=== PATIENT | male | born 1955 | race Caucasian/White ===

== ENCOUNTER 2016-11-09 05:37 | Observation (INO) ==
[2016-11-03 11:48] LABS: HEMATOCRIT 42.2 % (42.0-52.0); HEMOGLOBIN 14.5 g/dL (14.0-18.0); MCH 35.1 PG (27-31); MCHC 34.4 g/dL (33-37); MCV 102.2 FL (81-99); MPV 9.6 FL (7.4-10.4); RBC 4.13 XMIL (4.7-6.1)
--- NOTE | 2016-11-03 12:08 | EKG Report ---
Test Performed on : 11/03/2016 11:10:51 AM Test Reason : PAT Blood Pressure : / mmHG Vent. Rate : 058 BPM Atrial Rate : 058 BPM P-R Int : 182 ms QRS Dur : 130 ms QT Int : 448 ms P-R-T Axes : 043 019 037 degrees QTc Int : 439 ms Sinus bradycardia. Nonspecific intraventricular block Abnormal ECG When compared with ECG of 06-JUN-2009 10:41, No significant change was found Confirmed by Freddie Genao DO ([id number]) on 11/07/2016 12:21:06 PM
[2016-11-03 12:12] LABS: AGAP 8; BUN 12 mg/dL (8-22); CALCIUM 8.1 mg/dL (8.8-10.2); CHLORIDE 104 mmol/L (98-107); COSMO 277; POTASSIUM 4.1 mmol/L (3.5-5.1); SODIUM 139 mmol/L (136-145); TCO2 27 mmol/L (25-35)
[2016-11-09] MEDS ORDERED: REGLAN ONE (06:03)
[2016-11-09] MEDS ORDERED: KEFZOL 2 GM/D5W 2 GM/50 ML IVPB ONE (06:03)
[2016-11-09] MEDS ORDERED: PEPCID ONE (06:03)
[2016-11-09] MEDS ORDERED: LR 1,000 ML ONE ×2 (06:03→06:16)
[2016-11-09] MEDS ORDERED: FENTANYL ONE (06:10)
[2016-11-09] MEDS ORDERED: DIPRIVAN 1% ONE (06:11)
[2016-11-09] MEDS ORDERED: VERSED ONE (06:11)
[2016-11-09] MEDS ORDERED: NEO-SYNEPHRINE ONE (06:15)
[2016-11-09] MEDS ORDERED: ROBINUL ONE ×2 (06:15→13:24)
[2016-11-09] MEDS ORDERED: NORCURON ONE ×2 (06:15→09:23)
[2016-11-09] MEDS ORDERED: ZOFRAN ONE (06:15)
[2016-11-09] MEDS ORDERED: QUELICIN (DOSE) ONE (06:15)
[2016-11-09] MEDS ORDERED: OFIRMEV 1000 MG/ISOTONIC SOLN 1,000 MG/100 ML BOTTLE ONE ×2 (06:15→14:12)
[2016-11-09] MEDS ORDERED: STERILE WATER INJ. ONE (06:15)
[2016-11-09] MEDS ORDERED: XYLOCAINE-MPF 2% ONE (06:15)
[2016-11-09] MEDS ORDERED: B & O 16A SUPP ONE (06:16)
[2016-11-09] MEDS ORDERED: NEOSTIGMINE ONE (06:16)
[2016-11-09] MEDS ORDERED: SENSORCAINE-MPF 0.5%/EPI 1:200,000 ONE (06:19)
[2016-11-09 09:12] LABS: URINE MICRO REVIEW NEEDED? NO; URINE SOURCE CATH
[2016-11-09 09:15] LABS: BILIRUBIN URINE NEGATIVE (NEGATIVE); BLOOD URINE NEGATIVE (NEGATIVE); COLOR YELLOW; GLUCOSE URINE NEGATIVE (NEGATIVE); LEUKOCYTES URINE NEGATIVE (NEGATIVE); NITRITE URINE NEGATIVE (NEGATIVE); PROTEIN URINE TRACE mg/dL (NEGATIVE); SP GRAVITY URINE 1.018; TURBIDITY URINE CLEAR (CLEAR); UR EPITHELIAL CELLS <10 /HPF (<10); URINE BACTERIA NEGATIVE /HPF; URINE RBC <10 /HPF (<10); URINE WBC <10 /HPF (<10); UROBILINOGEN URINE NORMAL (NORMAL)
[2016-11-09] MEDS ORDERED: SODIUM CHLORIDE 0.9% 10 ML ONE (09:24)
[2016-11-09] MEDS ORDERED: MORPHINE ONE (10:01)
[2016-11-09] MEDS ORDERED: KEFZOL 1 GM/D5W 1 GM/50 ML IVPB ONE (14:11)
[2016-11-09] MEDS ORDERED: NS 1,000 ML ONE (14:12)
[2016-11-09] MEDS ORDERED: DITROPAN PO PRN (17:12)
[2016-11-09] MEDS ORDERED: PHENERGAN PO PRN (17:12)
[2016-11-09] MEDS ORDERED: PHENERGAN IV PRN (17:12)
[2016-11-09] MEDS ORDERED: MORPHINE IV PRN (17:12)
[2016-11-09] MEDS ORDERED: BENADRYL LIQUID PO PRN (17:12)
[2016-11-09] MEDS ORDERED: LABETALOL IV PRN (17:12)
[2016-11-09] MEDS ORDERED: PHENERGAN PR PRN (17:12)
[2016-11-09] MEDS ORDERED: SODIUM CHLORIDE 0.9% INJ PRN (17:12)
[2016-11-09] MEDS ORDERED: BENADRYL IV PRN (17:12)
[2016-11-09] MEDS: NS 1,000 ML IV SCH ×2 (19:32→22:20)
--- NOTE | 2016-11-09 21:56 | OPERATIVE NOTE ---
PROCEDURE DATE: 11/09/2016 SURGEON: Cristóbal Dumont MD PREOPERATIVE DIAGNOSIS: Adenocarcinoma of the prostate. POSTOPERATIVE DIAGNOSIS: Adenocarcinoma of the prostate. PROCEDURE PERFORMED: 1. Laparoscopic robot-assisted radical retropubic prostatectomy. 2. Modified bilateral pelvic lymph node dissection. 3. Urethral suspension. ANESTHESIA: General endotracheal. FINDINGS: Prostate about 40-50 g, irregular in shape. It was very adhered to the bladder neck area and apex of the rectum. It also appeared to be adhered to the left neurovascular bundle along the whole length and distally in the right neurovascular bundle. INDICATION FOR PROCEDURE: This 61-year-old male has a history of elevated PSA. Prostate ultrasound and biopsies revealed adenocarcinoma, Jovani grade 3 + 4, most from the left side and 3+ 3 from the right side description. DETAILS OF OPERATION: After informed consent was obtained from the patient, him receiving IV antibiotics, he was taken to the main OR, placed in the supine position. General anesthesia via laryngeal mask was achieved. He was then placed in the low lithotomy position and prepped and draped in the usual sterile fashion for abdominal, penile and perineal surgery. The patient was very obese and had a very large pannus. After he was prepped and draped sterilely, an 18-Arabic Whatley catheter was passed through the patient's urethra, prostate, and into the bladder without difficulty. 10 mL sterile water was placed in the Whatley's balloon. Pneumoperitoneum was achieved through a Visiport. Attempts were made to go through the supraumbilical area, through the umbilical area and through the left upper quadrant with a Veress needle without success. His pannus was so thick the needle (even the large needle) would not go through the pannus and entered the abdominal cavity. The Visiport without the built-in knife but with a trocar was used to go through the supraumbilical incision under direct vision and it was seen to go into the abdominal cavity. Pneumoperitoneum was achieved. The robot trocars were placed in the standard position with the #2 arm about 2 handbreadth to the left of the umbilicus, the #1 port was placed about 1 handbreadth lateral to the umbilicus on the right side and the 3rd arm was placed 1 handbreadth away from the #1 arm. This was above the right anterior superior iliac spine. The assistant media buyer port was placed in the left upper quadrant. Again, the obesity cannulas had to be used. After the ports were placed, he was placed in steep Trendelenburg and the table lowered all the way. The robot was docked. The procedure was started by taking down the adhesions from the left side, all the way down into the pelvis and up above the common iliac vessels. After this was taken down, the colon reflected cephalad. The peritoneum was incised as it reflected off the rectum and the seminal vesicles and vas deferens were found. These were bluntly and sharply dissected free. Cautery and clips were used to take the vascular pedicles to the seminal vesicles. Again, both sides were accomplished similarly. Attention was then turned to the anterior abdominal wall where the peritoneum was incised medial to the internal inguinal ring on the right side. This was taken down to the vas deferens as it went into the pelvis and up on the anterior abdominal wall. Left side was accomplished similarly. The medial umbilical ligaments were taken down sharply and the bladder dropped off the anterior abdominal wall. The fibrofatty tissue off the anterior and lateral sides of the prostate were removed sharply. The endopelvic fascia was incised lateral to the prostate and this incision extended up to the puboprostatic ligaments and back to the base of the prostate. The levator ani muscles were pushed off the sides of the prostate as best as possible. The puboprostatic ligaments were taken down sharply. Again, both sides were accomplished similarly. The apex of the prostate appeared very abnormal and a 2-0 V-Loc suture was attempted to be passed under the dorsal vein complex and then back through the tail of the suture and then back under the dorsal vein complex. This allowed some hemostasis. The suture was then passed through the periosteum of the pubis and back under the dorsal vein complex. Because of the very large apex of the prostate, the very end could never be reached at this time. The needle for the dorsal vein complex suture was removed from the body. Attention was then turned to the bladder neck area where the bladder neck was incised and the bladder was sharply dissected off of the base of the prostate. It was noted that the left side of the prostate was markedly enlarged and had the Whatley catheter pushed all the way to the right laterally. The bladder was sharply dissected off of this very large lateral lobe, and the right side was dissected free as well. The bladder was entered over the incision on the right side of the bladder where the Whatley catheter was visualized. The posterior bladder neck was incised and the bladder was dissected off the base of the prostate down to the previously dissected space of the seminal vesicles and ampulla vas deferens. This was entered and the ampulla of the vas and seminal vesicles were delivered. During this dissection, it was noted that the bladder was entered and this defect was sewn with a running suture of 3-0 V-Loc suture. The pedicles were taken down with clips and cautery. This was dissected down to the apex of the prostate, but the apex was very adhered to the rectum. A rectal Sizer was placed to ensure the rectum was not entered. The apex was dissected off of the rectum as best as possible, and then the dorsal vein complex was incised distal to the previously placed suture and dissected down to the urethra. The Whatley catheter was visualized and pulled back. The posterior urethra was incised and the prostate was completely dissected off of the rectum. Again, it was very adhered, and some prostate tissue could have been left. After the prostate was completely freed, the node dissection was performed by removing the tissue medial to the external iliac vein from the node of [place] up to its bifurcation, down to the obturator nerve and then back up to the bifurcation. These were sent to Pathology separately. Right side was accomplished similarly. After the dissection, Surgicel snow was placed in each fossa. The vesicovisceral fascia was connected to the posterior rhabdosphincter with a running suture of 3-0 V-Loc suture. The bladder was anastomosed to the urethra with a running 3-0 V-Loc suture. The Whatley catheter easily passed in the bladder and the bladder distended. There was some leakage noted, so a 19-Arabic Ricky drain was placed through the #4 arm trocar and sutured to the skin. After the drain was placed, pneumoperitoneum was resolved. The robot was undocked and the patient was brought supine. The camera port incision was extended to allow removal of the prostate that was placed in the EndoCatch bag earlier. The incision of the skin had to be lengthened because of the depth of his significant pannus, but the abdominal rectus fascia was eventually found and incised and the prostate removed. The abdominal rectus fascia was reapproximated with interrupted suture of #1 [place]. The skin was reapproximated with clips. He tolerated the procedure well. Estimated blood loss was 50 mL. He was extubated and taken to the recovery room in good condition. cc: Cristóbal Dumont MD
[2016-11-09] MEDS ORDERED: KEFZOL 1 GM/D5W 1 GM/50 ML IVPB IV SCH (22:00)
[2016-11-09] MEDS: OFIRMEV 1000 MG/ISOTONIC SOLN 1,000 MG/100 ML BOTTLE IV SCH (23:43)
[2016-11-10] MEDS: OXY IR PO PRN ×2 (02:09→10:36)
[2016-11-10] MEDS: NS 1,000 ML IV SCH ×3 (02:14→18:10)
[2016-11-10] MEDS: PEPCID PO SCH ×3 (02:15→20:34)
[2016-11-10] MEDS: COLACE PO SCH ×3 (02:15→20:34)
[2016-11-10] MEDS: OFIRMEV 1000 MG/ISOTONIC SOLN 1,000 MG/100 ML BOTTLE IV SCH (04:26)
[2016-11-10 04:59] LABS: CREATININE BODY FLUID 44.6 mg/dL
[2016-11-10 06:05] LABS: HEMATOCRIT 37.9 % (42.0-52.0); HEMOGLOBIN 12.9 g/dL (14.0-18.0); MCH 35.2 PG (27-31); MCV 103.6 FL (81-99); MPV 9.4 FL (7.4-10.4); RBC 3.66 XMIL (4.7-6.1)
[2016-11-10] MEDS: HUMULIN R SUBQ SCH ×3 (06:39→18:10)
[2016-11-10 06:47] LABS: AGAP 7; BUN 20 mg/dL (8-22); CALCIUM 7.5 mg/dL (8.8-10.2); CHLORIDE 102 mmol/L (98-107); COSMO 280; POTASSIUM 5.1 mmol/L (3.5-5.1); SODIUM 137 mmol/L (136-145); TCO2 28 mmol/L (25-35)
[2016-11-10] MEDS: COENZYME Q10 PO SCH (09:30)
[2016-11-10] MEDS: ASPIRIN PO SCH (09:30)
[2016-11-10] MEDS: PRAVACHOL PO SCH (09:31)
[2016-11-10] MEDS: GLUCOPHAGE XR PO SCH (11:04)
[2016-11-10] MEDS: PRINIVIL PO SCH (11:05)
[2016-11-10] MEDS ORDERED: XYLOCAINE-MPF 2% ONE (12:09)
[2016-11-10] MEDS ORDERED: DIPRIVAN 1% ONE (12:10)
[2016-11-10] MEDS ORDERED: QUELICIN (DOSE) ONE (12:27)
[2016-11-10] MEDS ORDERED: KEFZOL 2 GM/D5W 0 GM/0 ML IVPB ONE (12:31)
[2016-11-10] MEDS ORDERED: KEFZOL 2 GM/D5W 2 GM/50 ML IVPB ONE (12:33)
[2016-11-10] MEDS ORDERED: ROBINUL ONE (12:54)
[2016-11-10] MEDS ORDERED: EPHEDRINE ONE (13:02)
--- NOTE | 2016-11-10 19:32 | OPERATIVE NOTE ---
PROCEDURE DATE: 11/10/2016 SURGEON: Cristóbal Dumont MD. PREOPERATIVE DIAGNOSIS: Dislodged Whatley catheter. POSTOPERATIVE DIAGNOSIS: Dislodged Whatley catheter. PROCEDURE PERFORMED: 1. Cystoscopic exam with clot irrigation. 2. Difficult Whatley catheterization. FINDINGS: When the indwelling Whatley catheter was removed, a large amount of clot came out behind it. The cystoscopic exam revealed a urethra greater than 21 [place] without stricture. The Whatley balloon had been pulled back into the membranous urethra and proximal bulbar area and the mucosa was split. This had bleeding areas. With irrigation, this bleeding area almost stopped. The bladder anastomosis was intact and bladder mucosa was coapting to urethral mucosa. Ureteral orifices were normal bilaterally. There was a defect in the trigone consistent with his cystotomy during surgery. There were no papillary lesions. No trabeculations. No diverticula. INDICATION FOR PROCEDURE: This 61-year-old male underwent laparoscopic robot-assisted radical retropubic prostatectomy yesterday. He also underwent bilateral modified pelvic lymph node dissection and urethral suspension. At the time of surgery, the catheter appeared to be in good position. In postop, the patient was noted to have a decrease in the urine output and a lot of clots coming out through and around the catheter. The catheter was irrigated and this irrigant fluid came out of the Ricky drain in the right lower quadrant. This was continued overnight and did not get any better. He presents now to see if the bladder anastomosis is intact and if the catheter was dislodged. DESCRIPTION OF PROCEDURE: After informed consent was obtained from the patient, and him receiving IV antibiotics, he was taken to the main OR cystoscopy room, placed in the supine position. General endotracheal anesthesia was achieved. He was then placed in a low lithotomy position and prepped and draped in the usual sterile fashion for cystoscopic exam. His old Whatley catheter was removed and again a large amount of clot came out with the catheter and immediately behind the catheter. An [facility] flexible cystoscope was passed through the patient's urethra and up to the bladder with findings as noted above. Because there were significant clots, a very good picture could not be seen. The flexible cystoscope was removed and a 21-[place] sheath cystoscope was passed through the patient's urethra, membranous urethra and anastomotic area and into the bladder without difficulty. Clots were irrigated from the bladder and proximal bulbar area. At completion, there were no clots in the bladder. However, there was a diffuse ooze from the urethral mucosa. This was not cauterized because of the probability of forming strictures. A 0.035 zip wire was passed through the cystoscope and up into the bladder. It was coiled in the bladder. The cystoscope was removed leaving the zip wire in place. A 22-[place] coude hematuria catheter had the end of the catheter removed with a catheter cutter. The catheter was passed over the wire and up into the bladder without difficulty. 20 mL of sterile water were placed in the Whatley's balloon. The Whatley was placed to gravity drain. Continuous bladder irrigation was started and the urine cleared. The patient will continue with bladder irrigation until tonight and it will be weaned off. He will go home with this catheter in place. We will check Ricky drain creatinine level in the morning. He tolerated the procedure well. Estimated blood loss was less than 5 mL during the case. He was taken to the recovery room, extubated and in good condition. cc: Cristóbal Dumont MD
[2016-11-11] MEDS: HUMULIN R SUBQ SCH ×2 (03:38→06:04)
[2016-11-11] MEDS: NS 1,000 ML IV SCH (03:38)
[2016-11-11] MEDS: OXY IR PO PRN (04:01)
[2016-11-11 05:07] LABS: MANUAL DIFF NEEDED? NO
[2016-11-11 05:23] LABS: BASO% 0.2 % (0.0-0.8); EOS# 0.13 X1000 (0.0-0.7); HEMATOCRIT 35.3 % (42.0-52.0); HEMOGLOBIN 12.2 g/dL (14.0-18.0); IMM GRAN# 0.03 X1000 (0.0-0.04); IMM GRAN% 0.2 % (0.0-0.5); LYMPH# 1.22 X1000 (1.2-3.4); LYMPH% 9.3 % (20.5-51.1); MCH 34.6 PG (27-31); MCHC 34.6 g/dL (33-37); MONO# 2.11 X1000 (0.11-0.59); MONO% 16.1 % (1.7-9.3); MPV 10.1 FL (7.4-10.4); NEUT% 73.2 % (42.2-75.2); PLT 170 X1000 (130-400); RBC 3.53 XMIL (4.7-6.1)
[2016-11-11 05:50] LABS: AGAP 9; BUN 21 mg/dL (8-22); CALCIUM 7.6 mg/dL (8.8-10.2); CHLORIDE 99 mmol/L (98-107); COSMO 274; POTASSIUM 5.4 mmol/L (3.5-5.1); SODIUM 134 mmol/L (136-145); TCO2 26 mmol/L (25-35)
[2016-11-11 05:54] LABS: CREATININE BODY FLUID 0.6 mg/dL
[2016-11-11] MEDS: COENZYME Q10 PO SCH (08:11)
[2016-11-11] MEDS: PRINIVIL PO SCH (08:11)
[2016-11-11] MEDS: ASPIRIN PO SCH (08:12)
[2016-11-11] MEDS: GLUCOPHAGE XR PO SCH (08:12)
[2016-11-11] MEDS: PRAVACHOL PO SCH (08:12)
[2016-11-11] MEDS: COLACE PO SCH (08:12)
[2016-11-11] MEDS: PEPCID PO SCH (08:12)
[2016-11-11] MEDS ORDERED: NORCO-10 PO PRN (09:10)
[2016-11-11 11:08] VITALS: BP 133/49
--- NOTE | 2016-11-12 07:11 | DISCHARGE SUMMARY ---
ADMISSION DATE: 11/09/2016 DISCHARGE DATE: 11/11/2016 DISCHARGE DIAGNOSES: 1. Prostate cancer. 2. Hypertension. 3. Diabetes. 4. Elevated cholesterol. DISCHARGE MEDICATIONS: 1. [place]on 10 1 p.o. q.4 hours p.r.n. pain. 2. Aspirin 81 mg a day. 3. CO Q10 1 daily. 4. Glucophage XR 500 mg daily. 5. Lisinopril 2.5 mg daily. 6. Pravachol 10 mg a day. DISCHARGE DIET: 2000 calorie ADA. HOSPITAL COURSE: This 61-year-old male was noted to have an elevated PSA. Prostate biopsy revealed Jovani 3 + 4 prostate cancer. He underwent laparoscopic robot-assisted radical retropubic prostatectomy and bilateral modified pelvic lymph node dissection. Postoperatively, his catheter became dislodged and he underwent repeat cystoscopic exam with clot irrigation and placement of the Whatley catheter into the bladder. At that cysto, it was noted the anastomosis was in good condition. At discharge, vital signs are stable. He is afebrile. He is tolerating his ADA diet. His Ricky drain still has a significant output but the creatinine level was 0.6 which is serum level. Because of the significant output, we will keep that in for another day. He will be discharged with his Whatley catheter. He will return to the [facility]rology [facility] in the morning for Ricky drain removal. He will call sooner if any problems. cc: Cristóbal Dumont MD
== END 2016-11-11 13:53 | disposition home or self-care (01) ==
LOC: OR 05:37 → 4N 05:37
PROVIDERS: ADMIT Urology; ATTEND Urology